=== PATIENT | female | born 1970 | race African-American/Black ===

== ENCOUNTER → 2020-10-04 | Outpatient (CLI) | payer OTHER ==
--- NOTE | 2020-10-04 17:41 | RAD ---
Examination: PELVIS COMPLETE History: Reason: DUB; Uterine Fibroids / Spl. Instructions: / History: Comparison/Correlation: None Findings: Transabdominal pelvic ultrasounds are performed. Uterus measures 7.7 cm x 5.9 cm x 4.2 cm. Endometrium is not delineated and this appears in part related to underlying heterogeneity of the myometrium diffusely which may relate to underlying diffuse fibroid involvement. No suggestion of endometrial thickening.. Fibroid at the mid uterine body level measuring up to 3 cm diameter is present. The left side of the uterus, there is a fibroid involving myometrium measuring up to 2.7 cm diameter. Right ovary measures 2.3 cm x 1.4 cm x 1.8 cm . Left ovary measures 4 cm x 2.67 x 2.1 cm. There is a left ovarian follicle measuring up to 1.6 cm which is physiologic in appearance. No pelvic free fluid. Normal ovarian flow on color Doppler imaging is evident. Impression: Fibroid involvement of the uterus. Focal fibroids are seen. Mild diffuse heterogeneous involvement of the uterus also noted. Electronically signed by: Guy Hastings MD (10/04/2020 5:38 PM) [facility]
== END ==
LOC: US 14:25
PROVIDERS: ATTEND Obstetrics & Gynecology
DX: N93.8 Other specified abnormal uterine and vaginal bleeding (principal); D25.9 Leiomyoma of uterus, unspecified
CPT/HCPCS: 76856